=== PATIENT | male | born 1970 | race Caucasian/White ===

== ENCOUNTER 2020-04-22 13:30 | Outpatient (RCR) | payer BC | END 2020-07-21 | disposition home or self-care (01) | LOC: LAB 13:30 | PROVIDERS: ATTEND Family Medicine | DX: Z01.89 Encounter for other specified special examinations (principal); Z98.52 Vasectomy status | CPT/HCPCS: 89321 ==

== ENCOUNTER → 2021-10-12 | Outpatient (CLI) | payer BC ==
--- NOTE | 2021-10-12 16:45 | Diagnostic Imaging Report ---
INDICATION: Injury. Shoulder pain x 3 weeks. EXAMINATION: Right shoulder MRI without contrast on 10/12/2021. FINDINGS: There is a partial-thickness intrasubstance tear within the infraspinatus tendon with a partial tear extending to the articular surface along the supraspinatus tendon. No full-thickness tear is appreciated. Tendinosis throughout the subscapularis tendon is noted with no discrete tears appreciated. The long head of the biceps tendon lies in the bicipital groove and appears intact. The biceps tendon anchor is intact. The labrum is unremarkable on this noncontrast examination. The muscle volume appears preserved. The visualized axilla is unremarkable. There is narrowing, spurring, and edema at the acromioclavicular joint, consistent with osteoarthritic changes, with similar findings noted along the superolateral border of the humeral head. There is no acute osseous abnormality. IMPRESSION: 1. Partial tears of the supraspinatus and infraspinatus tendons with tendinosis in the subscapularis tendon. 2. Biceps tendon and labrum are grossly intact. 3. Acromioclavicular osteoarthritic changes. Dictated by: Dictated on workstation # [id number]
== END ==
LOC: RAD 14:00
PROVIDERS: ATTEND Family Medicine Sports Medicine
DX: S46.811A Strain of other muscles, fascia and tendons at shoulder and upper arm level, right arm, initial encounter (principal); M19.011 Primary osteoarthritis, right shoulder; X58.XXXA Exposure to other specified factors, initial encounter
CPT/HCPCS: 73221

== ENCOUNTER → 2021-10-22 | Outpatient (CLI) | payer BC ==
--- NOTE | 2021-10-22 11:28 | Diagnostic Imaging Report ---
PROCEDURE: MR imaging cervical spine without contrast. TECHNIQUE: Multiplanar, multisequence MR imaging of the cervical spine was performed without contrast. INDICATION: Neck and right shoulder pain, numbness in the right arm. COMPARISON: No relevant comparison. FINDINGS: The cervical vertebral statures are normal. The alignment is anatomic. The marrow signal intensity is unremarkable. The cervical spinal cord itself has a normal volume, morphology, and signal intensity. There is no paravertebral mass, hemorrhage, or fluid collection. Craniocervical relationship is unremarkable. The C1-C2 and the C2-C3 levels and discs are normal. There was no stenosis. C3-C4: Disc is adequately hydrated and nondisplaced. There are, however, endplate spurs and uncovertebral joint hypertrophy, asymmetric on the left resulting in [id number] left foraminal stenosis. The canal and right foramen are widely patent. C4-C5: Mild osteophyte disc material directed anteriorly is present. There is also right-sided uncovertebral joint and endplate spurring with mild rightward bulging disc material. Findings result in at least moderate severity of right-sided neural foraminal stenosis, predominantly on a bony basis. The contralateral left foramen is only mildly narrowed. C5-C6: Posterior osteophyte disc material mildly indents the ventral thecal sac, but a substantial degree of canal stenosis is not present. Endplate and uncovertebral joint spurring is present bilaterally with [id number] left and moderate right foraminal narrowing. C6-C7: Osteophyte disc material flattens and effaces the ventral thecal sac with mild canal stenosis. Disc material, endplate spurs, and uncovertebral joint hypertrophy are asymmetric, greater right, with moderate right and [id number] left foraminal stenosis. C7-T1: This level and disc are normal. There is no stenosis. IMPRESSION: 1. Multilevel mid to lower cervical endplate spurs and uncovertebral joint hypertrophy with mild disc displacements were responsible for foraminal greater than canal stenoses, detailed level by level above. 2. Normal spinal cord. Normal alignment. No acute bony abnormality. Dictated by: Dictated on workstation # [id number]
== END ==
LOC: RAD 09:30
PROVIDERS: ATTEND Family Medicine Sports Medicine
DX: M50.221 Other cervical disc displacement at C4-C5 level (principal); M48.02 Spinal stenosis, cervical region; M25.78 Osteophyte, vertebrae; M46.02 Spinal enthesopathy, cervical region; S46.091D Other injury of muscle(s) and tendon(s) of the rotator cuff of right shoulder, subsequent encounter
CPT/HCPCS: 72141